=== PATIENT | female | born 1965 | race Caucasian/White ===

== ENCOUNTER → 2019-02-25 | Outpatient (CLI) | payer OTHER ==
--- NOTE | 2019-02-25 11:41 | KCIC ---
Examination: MRI of the right shoulder contrast HISTORY: History of right shoulder pain, decreased range of motion COMPARISON: None available TECHNIQUE: Multiplanar, multisequence MR imaging of the right shoulder performed contrast FINDINGS: The long head of the biceps tendon within the bicipital groove. The attachment of the long head the biceps tendon to the superior labral anchor grossly appears intact. There is a small focus of full-thickness tear identified in the anterior fibers of the supraspinatus tendon measuring 7 mm. There is mild extension of fluid into subacromial subdeltoid bursa. Moderate tendinosis of the supraspinatus, infraspinatus tendons. The muscle bulk grossly appears unremarkable. Minimal increased T2 signal identified in the superior labrum likely a small SLAP tear. Mild degenerative changes, clinical examination. The acromion is type II. IMPRESSION: 1. Small focus of full-thickness tears of the anterior fibers of the supraspinatus tendon with extension of fluid into subacromial subdeltoid bursa. 2. Small SLAP tear. 3. Tendinosis of the rotator cuff. Electronically signed by: Chase Sahni MD (02/25/2019 11:38 AM) [id number]
== END | disposition home or self-care (01) ==
LOC: KCIC MRI 09:10
DX: S43.431A Superior glenoid labrum lesion of right shoulder, initial encounter (principal); M75.101 Unspecified rotator cuff tear or rupture of right shoulder, not specified as traumatic; X58.XXXA Exposure to other specified factors, initial encounter; Y93.89 Activity, other specified; Y92.89 Other specified places as the place of occurrence of the external cause; Y99.8 Other external cause status
CPT/HCPCS: 73221